=== PATIENT | male | born 1980 | race Caucasian/White ===

== ENCOUNTER 2022-10-31 22:37 | Emergency (ER) | payer SELFPAY ==
[~2022-10-31] VITALS: Ht 175 cm; Wt 86.0 kg
[2022-10-31] MEDS ORDERED: ASPIRIN 81 MG CHEW (CHILDREN'S ASA) PO ONE (23:00)
[2022-10-31] MEDS: NITROGLYCERIN 0.4 MG SL TABS BTL 25'S SL PRN ×3 (23:02→23:16)
[2022-10-31 23:06] LABS: BASOPHILS # (AUTO) 0.1 10^3/uL (0.0-0.1); BASOPHILS % (AUTO) 2 % (0-10); EOSINOPHILS # (AUTO) 0.6 10^3/uL (0.0-0.3); EOSINOPHILS % (AUTO) 7 % (0-10); HEMATOCRIT 46 % (40-54); HEMOGLOBIN 16.1 g/dL (13.3-17.7); LYMPHOCYTES # (AUTO) 2.6 10^3/uL (1.0-4.0); LYMPHOCYTES % (AUTO) 33 % (12-44); MEAN CORPUSCULAR HEMOGLOBIN 30 pg (25-34); MEAN CORPUSCULAR HGB CONC 35 g/dL (32-36); MEAN CORPUSCULAR VOLUME 84 fL (80-99); MEAN PLATELET VOLUME 9.8 fL (9.0-12.2); MONOCYTES # (AUTO) 0.7 10^3/uL (0.0-1.0); MONOCYTES % (AUTO) 8 % (0-12); NEUTROPHILS % (AUTO) 50 % (42-75); PLATELET COUNT 262 10^3/uL (130-400); WHITE BLOOD COUNT 8.1 10^3/uL (4.3-11.0)
[2022-10-31 23:17] LABS: INR 0.9 (0.8-1.4); PROTHROMBIN TIME PATIENT 12.9 SEC (12.2-14.7)
[2022-10-31 23:18] LABS: ALBUMIN 4.2 GM/DL (3.2-4.5); POTASSIUM 3.9 MMOL/L (3.6-5.0)
[2022-10-31 23:19] LABS: CALCIUM 10.1 MG/DL (8.5-10.1)
[2022-10-31 23:21] LABS: TOTAL PROTEIN 6.8 GM/DL (6.4-8.2)
[2022-10-31 23:22] LABS: BILIRUBIN,TOTAL 0.4 MG/DL (0.1-1.0)
[2022-10-31 23:24] LABS: CREATININE SERUM 0.98 MG/DL (0.60-1.30)
[2022-10-31 23:35] LABS: CREATINE KINASE MB 0.9 NG/ML (<6.6)
[2022-10-31 23:48] LABS: BILIRUBIN,URINE NEGATIVE (NEGATIVE); CLARITY,URINE CLEAR; COLOR,URINE YELLOW; GLUCOSE, URINE (UA) NEGATIVE (NEGATIVE); KETONES,URINE NEGATIVE (NEGATIVE); LEUKOCYTE ESTERASE ,URINE NEGATIVE (NEGATIVE); NITRITE,URINE NEGATIVE (NEGATIVE); PH,URINE 6.5 (5-9); PROTEIN,URINE NEGATIVE (NEGATIVE)
[2022-10-31 23:58] LABS: BACTERIA,URINE NEGATIVE /HPF
[2022-11-01 00:02] LABS: AMPHETAMINE SCREEN, URINE NEGATIVE (NEGATIVE); BARBITURATE SCREEN URINE NEGATIVE (NEGATIVE); BENZODIAZEPINES SCREEN URINE NEGATIVE (NEGATIVE); CANNABINOID SCREEN, URINE NEGATIVE (NEGATIVE); COCAINE SCREEN URINE NEGATIVE (NEGATIVE); METHADONE STAT NEGATIVE (NEGATIVE); OPIATE SCREEN URINE NEGATIVE (NEGATIVE); OXYCODONE STAT NEGATIVE (NEGATIVE); PROPOXYPHENE STAT NEGATIVE (NEGATIVE); TRICYCLIC ANTIDEPRESSANTS SCRE NEGATIVE (NEGATIVE)
[2022-11-01] MEDS ORDERED: PANT40TA2 PO (00:51)
[2022-11-01] MEDS ORDERED: KETO10TA PO (00:51)
--- NOTE | 2022-11-01 00:51 | ED Chest Pain ---
General Chief Complaint: Chest Pain Stated Complaint: CHEST PAIN Nursing Triage Note: c/o continuous right sided chest pain at rest x3 hrs Source: patient Allergies and Home Medications Allergies Coded Allergies: No Known Drug Allergies (Unverified , 10/31/22) Patient Home Medication List Ketorolac Tromethamine (Ketorolac Tromethamine) 10 Mg Tablet, 10 MG PO Q6H Prescribed by: CHIKIS VELAZQUEZ on 11/01/22 005 Pantoprazole Sodium (Protonix) 40 Mg Tablet.dr, 40 MG PO DAILY Prescribed by: CHIKIS VELAZQUEZ on 11/01/22 005 Past Ibefzvk-Pbgnjk-Thgjav Hx Patient Social History Tobacco Use?: Yes Substance use?: No Substance type: Methamphetamine Alcohol Use?: No Pt feels they are or have been: No Immunizations Up To Date First/Initial COVID19 Vaccinat: x2 Past Medical History Surgery/Hospitalization HX: denies Physical Exam Vital Signs Vital Signs - First Documented 10/31/22 22:47 Temp 36.4 Pulse 84 Resp 16 B/P (MAP) 140/95 (110) Pulse Ox 97 O2 Delivery Room Air Capillary Refill : Less Than 3 Seconds Height, Weight, BMI Height: '" Weight: lbs. oz. kg; 28.00 BMI Method: Progress/Results/Core Measures Results/Orders Lab Results Laboratory Tests Test 10/31/22 22:54 10/31/22 23:29 10/31/22 23:40 Range/Units White Blood Count 8.1 4.3-11.0 10^3/uL Red Blood Count 5.41 4.30-5.52 10^6/uL Hemoglobin 16.1 13.3-17.7 g/dL Hematocrit 46 40-54 % Mean Corpuscular Volume 84 80-99 fL Mean Corpuscular Hemoglobin 30 25-34 pg Mean Corpuscular Hemoglobin Concent 35 32-36 g/dL Red Cell Distribution Width 12.1 10.0-14.5 % Platelet Count 262 130-400 10^3/uL Mean Platelet Volume 9.8 9.0-12.2 fL Immature Granulocyte % (Auto) 0 % Neutrophils (%) (Auto) 50 42-75 % Lymphocytes (%) (Auto) 33 12-44 % Monocytes (%) (Auto) 8 0-12 % Eosinophils (%) (Auto) 7 0-10 % Basophils (%) (Auto) 2 0-10 % Neutrophils # (Auto) 4.0 1.8-7.8 10^3/uL Lymphocytes # (Auto) 2.6 1.0-4.0 10^3/uL Monocytes # (Auto) 0.7 0.0-1.0 10^3/uL Eosinophils # (Auto) 0.6 H 0.0-0.3 10^3/uL Basophils # (Auto) 0.1 0.0-0.1 10^3/uL Immature Granulocyte # (Auto) 0.0 0.0-0.1 10^3/uL Prothrombin Time 12.9 12.2-14.7 SEC INR Comment 0.9 0.8-1.4 Activated Partial Thromboplast Time 30 24-35 SEC D-Dimer < 0.27 0.00-0.49 UG/ML Sodium Level 139 135-145 MMOL/L Potassium Level 3.9 3.6-5.0 MMOL/L Chloride Level 105 98-107 MMOL/L Carbon Dioxide Level 23 21-32 MMOL/L Anion Gap 11 5-14 MMOL/L Blood Urea Nitrogen 16 7-18 MG/DL Creatinine 0.98 0.60-1.30 MG/DL Estimat Glomerular Filtration Rate 98 BUN/Creatinine Ratio 16 Glucose Level 123 H 70-105 MG/DL Calcium Level 10.1 8.5-10.1 MG/DL Corrected Calcium 9.9 8.5-10.1 MG/DL Magnesium Level 2.0 1.6-2.4 MG/DL Total Bilirubin 0.4 0.1-1.0 MG/DL Aspartate Amino Transf (AST/SGOT) 16 5-34 U/L Alanine Aminotransferase (ALT/SGPT) 22 0-55 U/L Alkaline Phosphatase 99 40-136 U/L Total Creatine Kinase 70 30-200 U/L Creatine Kinase MB 0.9 <6.6 NG/ML Myoglobin 29.8 10.0-92.0 NG/ML Troponin I < 0.028 <0.028 NG/ML B-Type Natriuretic Peptide < 10.0 <100.0 PG/ML Total Protein 6.8 6.4-8.2 GM/DL Albumin 4.2 3.2-4.5 GM/DL Amylase Level 53 25-125 U/L Lipase 33 8-78 U/L Serum Alcohol < 10 <10 MG/DL Influenza Type A (RT-PCR) Not Detected Not Detecte Influenza Type B (RT-PCR) Not Detected Not Detecte SARS-CoV-2 RNA (RT-PCR) Not Detected Not Detecte Urine Color YELLOW Urine Clarity CLEAR Urine pH 6.5 5-9 Urine Specific Dwight 1.010 L 1.016-1.022 Urine Protein NEGATIVE NEGATIVE Urine Glucose (UA) NEGATIVE NEGATIVE Urine Ketones NEGATIVE NEGATIVE Urine Nitrite NEGATIVE NEGATIVE Urine Bilirubin NEGATIVE NEGATIVE Urine Urobilinogen 0.2 < = 1.0 MG/DL Urine Leukocyte Esterase NEGATIVE NEGATIVE Urine RBC (Auto) NEGATIVE NEGATIVE Urine RBC NONE /HPF Urine WBC NONE /HPF Urine Crystals NONE /LPF Urine Bacteria NEGATIVE /HPF Urine Casts NONE /LPF Urine Mucus NEGATIVE /LPF Urine Culture Indicated NO Urine Opiates Screen NEGATIVE NEGATIVE Urine Oxycodone Screen NEGATIVE NEGATIVE Urine Methadone Screen NEGATIVE NEGATIVE Urine Propoxyphene Screen NEGATIVE NEGATIVE Urine Barbiturates Screen NEGATIVE NEGATIVE Ur Tricyclic Antidepressants Screen NEGATIVE NEGATIVE Urine Phencyclidine Screen NEGATIVE NEGATIVE Urine Amphetamines Screen NEGATIVE NEGATIVE Urine Methamphetamines Screen NEGATIVE NEGATIVE Urine Benzodiazepines Screen NEGATIVE NEGATIVE Urine Cocaine Screen NEGATIVE NEGATIVE Urine Cannabinoids Screen NEGATIVE NEGATIVE My Orders Orders - CHIKIS VELAZQUEZ DO Ekg Tracing (10/31/22 22:51) Covid 19 Inhouse Test (10/31/22 22:54) Cbc With Automated Diff (10/31/22 22:54) Magnesium (10/31/22 22:54) Chest 1 View, Ap/Pa Only (10/31/22 22:54) Comprehensive Metabolic Panel (10/31/22 22:54) Myoglobin Serum (10/31/22 22:54) Protime With Inr (10/31/22 22:54) Partial Thromboplastin Time (10/31/22 22:54) O2 (10/31/22 22:54) Monitor-Rhythm Ecg Trace Only (10/31/22 22:54) Ed Iv/Invasive Line Start (10/31/22 22:54) Creatine Kinase (10/31/22 22:54) Creatine Kinase Mb (10/31/22 22:54) Lipase (10/31/22 22:54) Amylase (10/31/22 22:54) Bnp Mcpherson (10/31/22 22:54) Fibrin Degradation Products (3/27/23 22:54) Troponin I Junaid (10/31/22 22:54) Nitroglycerin 0.4 Mg Btl 25's (Nitrostat (10/31/22 23:00) Aspirin Chewable Tablet (Baby Aspirin Ch (10/31/22 23:00) Influenza A And B By Pcr (10/31/22 22:54) Isolation Central Supply Req (10/31/22 22:54) Alcohol (10/31/22 22:54) Drug Screen Stat (Urine) (10/31/22 22:54) Ua Culture If Indicated (10/31/22 22:54) Medications Given in ED Current Medications Medications Dose Ordered Sig/Jackeline Route Start Time Stop Time Status Last Admin Dose Admin Aspirin 324 mg ONCE ONCE PO 10/31/22 23:00 10/31/22 23:01 DC 10/31/22 23:02 324 MG Nitroglycerin 0.4 mg UD PRN SL 10/31/22 23:00 10/31/22 23:16 DC 10/31/22 23:16 0.4 MG Vital Signs/I&O 10/31/22 22:47 Temp 36.4 Pulse 84 Resp 16 B/P (MAP) 140/95 (110) Pulse Ox 97 O2 Delivery Room Air Blood Pressure Mean: 110 Progress Progress Note : Progress Note GIVEN: -ASPIRIN -TORADOL COMPLETE RELIEF OF SYMPTOMS AND PT SLEPT FOR REMAINDER OF ER STAY Departure Impression Primary Impression: Right-sided chest wall pain Disposition: 01 HOME, SELF-CARE Condition: Improved Departure-Patient Inst. Decision time for Depature: 00:45 Referrals: [facility] (PCP/Family) Primary Care Physician Patient Instructions: Chest Pain (DC) Add. Discharge Instructions: HOME, REST LOTS OF CLEAR LIQUIDS--WATER, BROTH, JELLO, GATORADE FOLLOW UP WITH [facility] IN 1-2 DAYS FOR FURTHER CARE, RETURN TO ER IF SYMPTOMS WORSEN All discharge instructions reviewed with patient and/or family. Voiced understanding. Scripts Pantoprazole Sodium (Protonix) 40 Mg Tablet. 40 MG PO DAILY, #15 TAB Prov: CHIKIS VELAZQUEZ DO 11/01/22 Ketorolac Tromethamine (Ketorolac Tromethamine) 10 Mg Tablet 10 MG PO Q6H for Pain, #15 TAB Prov: CHIKIS VELAZQUEZ DO 11/01/22 CHIKIS VELAZQUEZ DO Nov 01, 2022 00:51
[2022-11-01 00:52] VITALS: BP 98/75
--- NOTE | 2022-11-01 08:31 | Diagnostic Imaging Report ---
PATIENT HISTORY: Chest pain. TECHNIQUE: Single frontal view of the chest. COMPARISON: None FINDINGS: The lung volumes are normal. No focal consolidation is seen. No large pleural effusion or pneumothorax is seen. The cardiomediastinal silhouette is normal in size and contour. No acute osseous abnormality is seen. IMPRESSION: No acute pulmonary abnormality seen. Dictated by: Dictated on workstation # [id number]
== END 2022-11-01 00:55 | disposition home or self-care (01) ==
LOC: ER 22:38
DX: R07.89 Other chest pain (principal); Z20.822 Contact with and (suspected) exposure to COVID-19
CPT/HCPCS: 71045; 80053; 80306; 81000; 82150; 82550; 82553; 83690; 83735; 83874; 83880; 84484; 85025; 85379; 85610; 85730; 87636; 93005; 93041; 99284; G0480; 36415; 80320

== ENCOUNTER 2023-04-23 07:58 | Emergency (ER) | payer SELFPAY ==
[~2023-04-23] VITALS: Ht 175.3 cm; Wt 84.0 kg
[~2023-04-23 07:58] MED LIST: KETO10TA PO; PANT40TA2 PO
--- NOTE | 2023-04-23 08:20 | ED GI ---
General Chief Complaint: Abdominal/GI Problems Stated Complaint: CHEST PAIN Nursing Triage Note: Patient c/o watery diarrhea x 3 wks with LLQ pain. Patient denies any blood in his stool, N/V, or fevers. Patient denies any Hx. of diverticulitis or colitis. Patient states his pain is a sharp and throbbing. Patient states he has been able to pass gas. Patient denies taking anything OTC to help with the diarrhea. Patient states he has had 3 diarrhea stools in last 24 hrs. Source of Information: Patient Exam Limitations: No Limitations History of Present Illness Date Seen by Provider: Apr 23, 2023 Time Seen by Provider: 08:08 Initial Comments 42-year-old male presents the emergency department today for loose stools x3 weeks. He is having loose stools 3-4 times a day for the last 3 weeks. No travel. He has diffuse abdominal cramping which she states is worse on the left side. No fevers or chills. No nausea or vomiting. No bloody or dark tarry stools. He tried some Pepto-Bismol at home which did not really help. He is having some chest wall pain which he states he has been having for the last several months. He has seen his primary care provider and they are attempting to get him into see a quality audit representative. He is not having any chest pain at present. All other systems reviewed and negative except documented per HPI. Voice recognition software was used to help create this chart Allergies and Home Medications Allergies Coded Allergies: No Known Drug Allergies (Unverified , 10/31/22) Patient Home Medication List Home Medication List Reviewed: Yes Ketorolac Tromethamine (Ketorolac Tromethamine) 10 Mg Tablet, 10 MG PO Q6H Prescribed by: CHIKIS VELAZQUEZ on 11/01/2250 Pantoprazole Sodium (Protonix) 40 Mg Tablet.dr, 40 MG PO DAILY Prescribed by: CHIKIS VELAZQUEZ on 11/01/2250 Review of Systems Review of Systems Constitutional: see HPI Past Wajpidf-Bglsjr-Dkfaxy Hx Patient Social History Tobacco Use?: Yes Tobacco type used: Cigarettes Smoking Status: Current Everyday Smoker Use of E-Cig and/or Vaping dev: Yes E-Cig or Vaping type used: Nicotine Use of E-Cig and/or Vaping Nehemiah: Current Everyday User Substance use?: No Substance type: Methamphetamine Alcohol Use?: No Pt feels they are or have been: No Immunizations Up To Date Influenza Vaccine Up-to-Date: No; Not Current First/Initial COVID19 Vaccinat: x2 Seasonal Allergies Seasonal Allergies: No Past Medical History Surgery/Hospitalization HX: GERD Surgeries: No Respiratory: No Cardiac: No Neurological: No Genitourinary: No Gastrointestinal: No Musculoskeletal: No Endocrine: No HEENT: No Cancer: No Psychosocial: No Integumentary: No Blood Disorders: No Family Medical History SOCIAL HISTORY: -SMOKES 1 PPD -VAPES NICOTINE DAILY -DENIES ETOH USE -DRUGS-- + IV METH USE. Physical Exam Vital Signs Vital Signs - First Documented 04/23/23 04/23/23 08:02 09:23 Temp 36.7 Pulse 81 Resp 14 B/P (MAP) 112/76 (88) Pulse Ox 97 O2 Delivery Room Air O2 Flow Rate 98.00 Capillary Refill : Height/Weight/BMI Height: '" Weight: lbs. oz. kg; 27.00 BMI Method: General Appearance: WD/WN, no apparent distress HEENT: normal ENT inspection, pharynx normal Neck: full range of motion, supple Respiratory: chest non-tender, lungs clear, normal breath sounds, no respiratory distress, no accessory muscle use Cardiovascular: regular rate, rhythm, no edema, no murmur Gastrointestinal: normal bowel sounds, non tender, soft Extremities: non-tender, normal capillary refill Neurologic/Psychiatric: alert, oriented x 3 Skin: normal color, warm/dry Progress/Results/Core Measures Results/Orders Lab Results Laboratory Tests Test 04/23/23 08:24 Range/Units White Blood Count 7.0 4.3-11.0 10^3/uL Red Blood Count 5.13 4.30-5.52 10^6/uL Hemoglobin 15.3 13.3-17.7 g/dL Hematocrit 45 40-54 % Mean Corpuscular Volume 87 80-99 fL Mean Corpuscular Hemoglobin 30 25-34 pg Mean Corpuscular Hemoglobin Concent 34 32-36 g/dL Red Cell Distribution Width 12.2 10.0-14.5 % Platelet Count 235 130-400 10^3/uL Mean Platelet Volume 9.9 9.0-12.2 fL Immature Granulocyte % (Auto) 0 % Neutrophils (%) (Auto) 56 42-75 % Lymphocytes (%) (Auto) 27 12-44 % Monocytes (%) (Auto) 10 0-12 % Eosinophils (%) (Auto) 6 0-10 % Basophils (%) (Auto) 1 0-10 % Neutrophils # (Auto) 3.9 1.8-7.8 10^3/uL Lymphocytes # (Auto) 1.9 1.0-4.0 10^3/uL Monocytes # (Auto) 0.7 0.0-1.0 10^3/uL Eosinophils # (Auto) 0.4 H 0.0-0.3 10^3/uL Basophils # (Auto) 0.1 0.0-0.1 10^3/uL Immature Granulocyte # (Auto) 0.0 0.0-0.1 10^3/uL Sodium Level 141 135-145 MMOL/L Potassium Level 4.3 3.6-5.0 MMOL/L Chloride Level 109 H 98-107 MMOL/L Carbon Dioxide Level 22 21-32 MMOL/L Anion Gap 10 5-14 MMOL/L Blood Urea Nitrogen 12 7-18 MG/DL Creatinine 0.92 0.60-1.30 MG/DL Estimat Glomerular Filtration Rate 105 BUN/Creatinine Ratio 13 Glucose Level 81 70-105 MG/DL Calcium Level 9.2 8.5-10.1 MG/DL Corrected Calcium 9.3 8.5-10.1 MG/DL Total Bilirubin 0.7 0.1-1.0 MG/DL Aspartate Amino Transf (AST/SGOT) 14 5-34 U/L Alanine Aminotransferase (ALT/SGPT) 12 0-55 U/L Alkaline Phosphatase 106 40-136 U/L Total Protein 6.3 L 6.4-8.2 GM/DL Albumin 3.9 3.2-4.5 GM/DL My Orders Orders - TRINA TAO DO Ekg Tracing (04/23/23 08:03) Comprehensive Metabolic Panel (04/23/23 08:18) Cbc With Automated Diff (04/23/23 08:18) Vital Signs/I&O 04/23/23 04/23/23 08:02 09:23 Temp 36.7 Pulse 81 62 Resp 14 14 B/P (MAP) 112/76 (88) 114/75 Pulse Ox 97 O2 Delivery Room Air Room Air O2 Flow Rate 98.00 Blood Pressure Mean: 88 Comment Sinus rhythm with a rate of 75 bpm. Normal intervals. Normal axis. No ST or T wave abnormalities. No ectopy. No STEMI. Departure Communication (Admissions) Patient is hemodynamically stable. He is in no bowel movements here in the emergency department. He tried Pepto without any relief so recommended he take Imodium [id number]. Advised if his symptoms last more than another week he should check with his primary doctor for stool sampling testing. He states understanding. His vital signs are reassuring, labs are unremarkable, chemistry as well as CBC. He has no focal abdominal tenderness and a nonsurgical abdominal exam overall. No recent travel. AFebrile. Impression Primary Impression: Loose stools Disposition: HOME, SELF-CARE Condition: Stable Departure-Patient Inst. Referrals: [facility] [place] Primary Care Physician Patient Instructions: Diarrhea in adolescents and adults Add. Discharge Instructions: I recommend you use Imodium [id number] for diarrhea. If your diarrhea persists I recommend you follow-up with primary doctor for stool sampling. Return to the emergency department for any severe concerns. Increase your fluids at home All discharge instructions reviewed with patient and/or family. Voiced understanding. TRINA TAO DO Apr 23, 2023 08:20
[2023-04-23 08:33] LABS: BASOPHILS # (AUTO) 0.1 10^3/uL (0.0-0.1); BASOPHILS % (AUTO) 1 % (0-10); EOSINOPHILS # (AUTO) 0.4 10^3/uL (0.0-0.3); EOSINOPHILS % (AUTO) 6 % (0-10); HEMATOCRIT 45 % (40-54); HEMOGLOBIN 15.3 g/dL (13.3-17.7); LYMPHOCYTES # (AUTO) 1.9 10^3/uL (1.0-4.0); LYMPHOCYTES % (AUTO) 27 % (12-44); MEAN CORPUSCULAR HEMOGLOBIN 30 pg (25-34); MEAN CORPUSCULAR HGB CONC 34 g/dL (32-36); MEAN CORPUSCULAR VOLUME 87 fL (80-99); MEAN PLATELET VOLUME 9.9 fL (9.0-12.2); MONOCYTES # (AUTO) 0.7 10^3/uL (0.0-1.0); MONOCYTES % (AUTO) 10 % (0-12); NEUTROPHILS # (AUTO) 3.9 10^3/uL (1.8-7.8); NEUTROPHILS % (AUTO) 56 % (42-75); PLATELET COUNT 235 10^3/uL (130-400)
[2023-04-23 08:55] LABS: ALBUMIN 3.9 GM/DL (3.2-4.5)
[2023-04-23 08:56] LABS: POTASSIUM 4.3 MMOL/L (3.6-5.0)
[2023-04-23 08:57] LABS: CALCIUM 9.2 MG/DL (8.5-10.1)
[2023-04-23 08:58] LABS: TOTAL PROTEIN 6.3 GM/DL (6.4-8.2)
[2023-04-23 09:00] LABS: BILIRUBIN,TOTAL 0.7 MG/DL (0.1-1.0)
[2023-04-23 09:02] LABS: CREATININE SERUM 0.92 MG/DL (0.60-1.30)
[2023-04-23 09:23] VITALS: BP 114/75
== END 2023-04-23 09:23 | disposition home or self-care (01) ==
LOC: EDUNIT# 07:58 → ER 08:00
DX: R19.7 Diarrhea, unspecified (principal); F17.210 Nicotine dependence, cigarettes, uncomplicated; F17.290 Nicotine dependence, other tobacco product, uncomplicated; Z28.311 Partially vaccinated for COVID-19
CPT/HCPCS: 36415; 80053; 85025; 93005